=== PATIENT | female | born 1955 | race Caucasian/White ===

== ENCOUNTER 2016-04-14 13:18 | Emergency (ER) | payer BC, MEDICAID ==
[2016-04-14] MEDS ORDERED: SODIUM CHLORIDE 0.9% 1,000 ML ONE (13:28)
[2016-04-14] MEDS ORDERED: ADENOSINE 6 MG/2 ML VIAL ONE (13:28)
== END 2016-04-14 17:30 | disposition home or self-care (01) ==
LOC: ER 13:18
CPT/HCPCS: 36415; 71010; 80047; 80053; 82550; 83735; 84439; 84443; 84484; 85014; 85025; 85610; 85730; 93005; 96374